=== PATIENT | male | born 1990 | race Hispanic/Latino ===

== ENCOUNTER 2018-02-13 09:33 | Emergency (ER) | payer BC ==
[2018-02-13 09:33] VITALS: BMI 25.8
[2018-02-13 09:43] VITALS: BP 125/77; PULSE 85; RESP 19; TEMP 98; O2SAT 98
--- NOTE | 2018-02-13 10:09 | ED PDOC ---
Arrival/HPI - General Historian: Patient <Natan Doshi - Last Filed: 02/13/18 12:03> <Lonnie Downs - Last Filed: 02/13/18 12:11> - General Chief Complaint: Lower Extremity Problem/Injury Time Seen by Provider: 02/13/18 10:05 - History of Present Illness Narrative History of Present Illness (Text): 02/13/18 10:06 27 y/o male, no significant pmh, nkda, c/o lt. ankle pain s/p running and gym yesterday with no direct fall or trauma. Pt. woke up this morning with the pain on the lt. lateral ankle, no numbness or tingling, no calf or thigh pain, no night sweat, no rash, no palpitation, no other medical or psychological complaints. (Natan Doshi) Past Medical History - Provider Review Nursing Documentation Reviewed: Yes - Infectious Disease Hx of Infectious Diseases: None - Tetanus Immunization Tetanus Immunization: Unknown - Past Medical History Past Medical History: No Previous - Psychiatric Hx Depression: No Hx Emotional Abuse: No Hx Physical Abuse: No Hx Substance Use: No - Surgical History Hx Appendectomy: Yes Hx Orthopedic Surgery: Yes (right knee) - Anesthesia Hx Anesthesia: Yes Hx Anesthesia Reactions: No Hx Malignant Hyperthermia: No - Suicidal Assessment Feels Threatened In Home Enviroment: No <Natan Doshi - Last Filed: 02/13/18 12:03> Family/Social History - Physician Review Nursing Documentation Reviewed: Yes Family/Social History: Unknown Family HX Smoking Status: Never Smoked Hx Alcohol Use: Yes Hx Substance Use: No Hx Substance Use Treatment: No <Natan Doshi - Last Filed: 02/13/18 12:03> Allergies/Home Meds <Natan Doshi - Last Filed: 02/13/18 12:03> <Lonnie Downs - Last Filed: 02/13/18 12:11> Allergies/Adverse Reactions: Allergies No Known Allergies Allergy (Verified 02/13/18 09:43) Review of Systems - Review of Systems Constitutional: absent: Fatigue, Fevers Eyes: absent: Vision Changes ENT: absent: Hearing Changes Respiratory: absent: SOB, Cough Cardiovascular: absent: Chest Pain Gastrointestinal: absent: Abdominal Pain, Nausea, Vomiting Musculoskeletal: Arthralgias. absent: Myalgias Skin: absent: Rash, Pruritis Neurological: absent: Headache Psychiatric: absent: Anxiety, Depression <Natan Doshi - Last Filed: 02/13/18 12:03> Physical Exam Vital Signs Reviewed: Yes Temperature: Afebrile Blood Pressure: Normal Pulse: Regular Respiratory Rate: Normal Appearance: Positive for: Well-Appearing, Non-Toxic, Comfortable Pain Distress: Mild Mental Status: Positive for: Alert and Oriented X 3 - Systems Exam Head: Present: Atraumatic, Normocephalic Pupils: Present: PERRL Extroacular Muscles: Present: EOMI Conjunctiva: Present: Normal Mouth: Present: Moist Mucous Membranes Neck: Present: Normal Range of Motion Respiratory/Chest: Present: Clear to Auscultation, Good Air Exchange. No: Respiratory Distress, Accessory Muscle Use Cardiovascular: Present: Regular Rate and Rhythm, Normal S1, S2. No: Murmurs Abdomen: No: Tenderness, Distention, Peritoneal Signs Back: Present: Normal Inspection Upper Extremity: Present: Normal Inspection. No: Cyanosis, Edema Lower Extremity: Present: Normal Inspection, Other (Lt. ankle/foot: +ttp on the lateral malleolus with no swelling, negative vitro and [place] signs, FROM without limitation, sensation intact, motor 5/5, +DPPT pulses, capillary refill < 2 seconds, neurovascular intact. ). No: Edema Neurological: Present: GCS=15, Speech Normal, Motor Func Grossly Intact, Gait Normal, Memory Normal Skin: Present: Warm, Dry, Normal Color. No: Rashes Psychiatric: Present: Alert, Oriented x 3, Normal Insight, Normal Concentration <Natan Doshi - Last Filed: 02/13/18 12:03> Vital Signs Temp Pulse Resp BP Pulse Ox 02/13/18 09:38 98 F 85 19 125/77 98 Medical Decision Making - RAD Interpretation Arboriculture Instructor: Radiologist <Natan Doshi - Last Filed: 02/13/18 12:03> <Lonnie Downs - Last Filed: 02/13/18 12:11> ED Course and Treatment: 02/13/18 10:08 -lt. ankle/foot xray -motrin 02/13/18 10:59 -Lt. foot and ankle ray: no fracture or dislocation -Daniel wrap, crutches, avoid gym and exercise for 7 days, -Discharge home with motrin, daniel wrap, crutches, elevation, ice compression, follow up with your own pmd and orthopedic within 2 days, return to the ER for any new or worsening signs or symptoms. (Natan Doshi) - RAD Interpretation Radiology Orders: 02/13/18 10:05 ANKLE LEFT 3 VIEWS ROUTINE [RAD] Stat FOOT LEFT 3 VIEWS ROUTINE [RAD] Stat Lt. foot xray: PROCEDURE: Left Foot Radiographs. HISTORY: running, twisted?, pain COMPARISON: None. FINDINGS: BONES: No fracture. Incidentally noted small os naviculare. . JOINTS: Normal. SOFT TISSUES: Normal. OTHER FINDINGS: None. IMPRESSION: Normal left foot radiographs. Lt. ankle xray: PROCEDURE: Left Ankle Radiographs. HISTORY: running, twisted?, pain COMPARISON: None FINDINGS: BONES: Normal. No fracture. JOINTS: Normal. No osteoarthritis. Ankle mortise maintained. Talar dome intact SOFT TISSUES: Normal. OTHER FINDINGS: None. IMPRESSION: Normal left ankle radiographs. (Natan Doshi) - Medication Orders Current Medication Orders: Discontinued Medications Ibuprofen (Motrin Tab) 600 mg PO STAT STA Stop: 02/13/18 10:06 Last Admin: 02/13/18 10:13 Dose: 600 mg MAR Pain/Vitals Document 02/13/18 10:13 EWO (Rec: 02/13/18 10:14 [facility] [id number]) Pain Reassessment Is This A Pain ReAssessment? No Sleep Is patient sleeping during reassessment? No Presence of Pain Presence of Pain Yes Pain Scale Used Pain Scale Used Numeric Location Left, Right or Bilateral Left Pain Location Body Site Ankle Description Constant Intermittent Intensity 4 Scale Used Numeric - PA / SWITCHBOX ASSEMBLER / Resident Statement / has reviewed & agrees with the documentation as recorded. <Natan Doshi - Last Filed: 02/13/18 12:03> - PA / SWITCHBOX ASSEMBLER / Resident Statement MD/DO has reviewed & agrees with the documentation as recorded. <Lonnie Downs - Last Filed: 02/13/18 12:11> Disposition/Present on Arrival - Present on Arrival Any Indicators Present on Arrival: No History of DVT/PE: No History of Uncontrolled Diabetes: No Urinary Catheter: No History of Decub. Ulcer: No History Surgical Site Infection Following: None - Disposition Have Diagnosis and Disposition been Completed?: Yes Disposition Time: 10:09 Patient Plan: Discharge <Natan Doshi - Last Filed: 02/13/18 12:03> <Lonnie Downs - Last Filed: 02/13/18 12:11> - Disposition Diagnosis: Ankle pain Disposition: HOME/ ROUTINE Condition: GOOD Additional Instructions: -Discharge home with motrin, daniel wrap, crutches, elevation, ice compression, follow up with your own pmd and orthopedic within 2 days, return to the ER for any new or worsening signs or symptoms. Prescriptions: Ibuprofen [Motrin] 600 mg PO QID PRN #[id number] PRN Reason: Other Referrals: Caren Bhatt MD [Primary Care Provider] - Follow up with primary Bang Rodriguez MD [Staff Provider] - Follow up with primary Forms: WORK NOTE
--- NOTE | 2018-02-13 11:12 | RAD ---
PROCEDURE: Left Ankle Radiographs. HISTORY: running, twisted?, pain COMPARISON: None FINDINGS: BONES: Normal. No fracture. JOINTS: Normal. No osteoarthritis. Ankle mortise maintained. Talar dome intact SOFT TISSUES: Normal. OTHER FINDINGS: None. IMPRESSION: Normal left ankle radiographs.
--- NOTE | 2018-02-13 11:14 | RAD ---
PROCEDURE: Left Foot Radiographs. HISTORY: running, twisted?, pain COMPARISON: None. FINDINGS: BONES: No fracture. Incidentally noted small os naviculare. . JOINTS: Normal. SOFT TISSUES: Normal. OTHER FINDINGS: None. IMPRESSION: Normal left foot radiographs.
== END 2018-02-13 11:09 | disposition home or self-care (01) ==
LOC: ED 09:33
DX: M25.572 Pain in left ankle and joints of left foot (principal)